=== PATIENT | male | born 1965 | race African-American/Black ===

== ENCOUNTER 2021-12-13 16:36 | Inpatient (IN) | payer MEDICAID ==
[2021-12-13 18:02] LABS: #Eosinphils 0.3 thou/uL (0.0-0.7); #Lymphocytes 2.3 thou/uL (1.20-3.40); #Monocytes 0.6 thou/uL (0.11-0.59); #Neutrophils 2.6 thou/uL (1.40-6.50); %Basophils 0.6 % (0.0-1.0); %Eosinophils 4.5 % (0.0-10.0); %Lymphocytes 39.1 % (21.0-51.0); %Monocytes 10.9 % (0.0-10.0); %Neutrophils 44.9 % (42.0-75.0); Hemoglobin 14.4 g/dL (14.0-18.0); Mean Corpuscular HGB CONC 31.7 g/dL (32.0-36.0); Mean Corpuscular Hemoglobin 28.2 pg (27.0-31.0); Mean Platelet Volume 6.4 fL (7.4-10.4); Platelet Count 246 thou/uL (130-400); RBC Distribution Width 11.9 % (11.5-14.5); Red Blood Cell (RBC) Count 5.11 mill/uL (4.70-6.10); White Blood Cell (WBC) Count 5.8 thou/uL (4.8-10.8)
[2021-12-13 18:24] LABS: ALT (SGPT) 80 U/L (8-55); AST (SGOT) 35 U/L (5-34); Albumin 3.8 g/dL (3.5-5.0); Alkaline Phosphatase 78 U/L (40-110); Anion Gap 13 mmol/L (10-20); BUN (Urea Nitrogen) 12 mg/dL (8.4-25.7); Calc. Creatinine Clearance 0 mL/min (70-130); Calcium 8.7 mg/dL (7.8-10.44); Carbon Dioxide 27 mmol/L (22-29); Chloride 104 mmol/L (98-107); Globulin 3.1 g/dL (2.4-3.5); Glucose 156 mg/dL (70-105); Lipase 47 U/L (8-78); Potassium 4.6 mmol/L (3.5-5.1); Protein, Total 6.9 g/dL (6.0-8.3); Sodium 139 mmol/L (136-145)
[2021-12-13 18:45] LABS: CKMB 2.6 ng/mL (0-6.6)
[2021-12-13] MEDS ORDERED: niCARdipine 25 MG/10 ML VIAL ONE (19:48)
[2021-12-13] MEDS ORDERED: niCARdipine 25 MG in Sodium Chloride 0.9% 250 ML 250 ML IVPB SCH (20:00)
[2021-12-13] MEDS ORDERED: Ondansetron ODT 4 MG TAB SL PRN (21:15)
[2021-12-13] MEDS ORDERED: Ondansetron PF 4 MG/2 ML Vial IVP PRN ×2 (21:15→21:33)
[2021-12-13] MEDS ORDERED: Acetaminophen 325 MG TAB PO PRN (21:15)
[2021-12-13] MEDS ORDERED: Ondansetron ODT 4 MG TAB PO PRN (21:33)
[2021-12-13] MEDS ORDERED: Nitroglycerin 0.4 MG TAB (25 Tab Bottle) SL PRN (21:33)
[2021-12-13] MEDS ORDERED: Calcium Carbonate 500 MG ChewTAB PO PRN (21:33)
[2021-12-13] MEDS ORDERED: Acetaminophen 500 MG TAB ONE (21:34)
[2021-12-13] MEDS ORDERED: Mag-Al 1200 mg/1200 mg/30 ML UDCUP PO SCH (21:45)
[2021-12-13 21:48] LABS: Troponin I 0.273 ng/mL (< 0.028)
[2021-12-13] MEDS ORDERED: Melatonin 3 MG TAB PO PRN (22:11)
[2021-12-13] MEDS ORDERED: Hydrochlorothiazide 25 MG TAB PO SCH (22:15)
[2021-12-13 22:19] LABS: SARS-CoV-2 NAA Rapid Test Not Detected (NotDetected)
[2021-12-14] MEDS: Acetaminophen 325 MG TAB PO PRN ×3 (01:02→19:24)
[2021-12-14 01:29] LABS: Amphetamine Not Detected (NotDetected); Barbiturates Screen Not Detected (NotDetected); Benzodiazepine Screen Not Detected (NotDetected); Cocaine Metabolite Screen Not Detected (NotDetected); Methadone Not Detected (NotDetected); Methamphetamine Not Detected (NotDetected); Opiate Screen Not Detected (NotDetected); Oxycodone Screen Not Detected (NotDetected); Phencyclidine (PCP) Not Detected (NotDetected); THC/Cannabinoid Screen Not Detected (NotDetected); Tricyclic Screen Not Detected (NotDetected)
[2021-12-14 05:17] VITALS: BMI 31.3
[2021-12-14 05:17] LABS: ALT (SGPT) 79 U/L (8-55); AST (SGOT) 30 U/L (5-34); Albumin 3.8 g/dL (3.5-5.0); Alkaline Phosphatase 76 U/L (40-110); Anion Gap 14 mmol/L (10-20); BUN (Urea Nitrogen) 10 mg/dL (8.4-25.7); Bilirubin, Total 0.8 mg/dL (0.2-1.2); Calc. Creatinine Clearance 99 mL/min (70-130); Calcium 8.9 mg/dL (7.8-10.44); Carbon Dioxide 26 mmol/L (22-29); Chloride 104 mmol/L (98-107); Globulin 2.9 g/dL (2.4-3.5); Glucose 119 mg/dL (70-105); Potassium 3.5 mmol/L (3.5-5.1); Protein, Total 6.7 g/dL (6.0-8.3); Sodium 140 mmol/L (136-145)
[2021-12-14 05:21] LABS: Troponin I 0.179 ng/mL (< 0.028)
[2021-12-14] MEDS ORDERED: Famotidine 20 MG TAB PO SCH (09:00)
[2021-12-14] MEDS ORDERED: Clopidogrel Bisulfate 75 MG TAB PO SCH (09:00)
[2021-12-14] MEDS ORDERED: Hydrochlorothiazide 25 MG TAB PO SCH (09:00)
[2021-12-14] MEDS ORDERED: Aspirin Chewable 81 MG TAB PO SCH (09:00)
[2021-12-14] MEDS ORDERED: Enoxaparin Sodium 40 MG/0.4 ML SYRINGE SC SCH (09:00)
[2021-12-14] MEDS: Famotidine 20 MG TAB PO SCH ×2 (09:47→19:22)
[2021-12-14] MEDS: Enoxaparin Sodium 40 MG/0.4 ML SYRINGE SC SCH ×2 (09:48→19:23)
[2021-12-14 17:14] VITALS: TEMP 98.2
[2021-12-14] MEDS ORDERED: Atorvastatin Calcium 40 MG TAB PO SCH (21:00)
== END 2021-12-14 19:45 | disposition home or self-care (01) | DRG 305 ==
LOC: ERS 16:36 → CCU 21:08
PROVIDERS: ADMIT Family Medicine; ATTEND Family Medicine
DX: I16.1 Hypertensive emergency (principal); Z20.822 Contact with and (suspected) exposure to COVID-19; I25.10 Atherosclerotic heart disease of native coronary artery without angina pectoris; H40.9 Unspecified glaucoma; F19.11 Other psychoactive substance abuse, in remission; I12.9 Hypertensive chronic kidney disease with stage 1 through stage 4 chronic kidney disease, or unspecified chronic kidney disease; K21.9 Gastro-esophageal reflux disease without esophagitis; N18.2 Chronic kidney disease, stage 2 (mild); R73.03 Prediabetes; E66.9 Obesity, unspecified; F17.210 Nicotine dependence, cigarettes, uncomplicated; F10.10 Alcohol abuse, uncomplicated; R00.1 Bradycardia, unspecified; Z79.82 Long term (current) use of aspirin; Z79.899 Other long term (current) drug therapy
CPT/HCPCS: 36415; 71045; 80053; 80306; 82553; 83690; 83880; 84484; 85025; 93005; 93306; 96374; J1650; J7050; U0002